=== PATIENT | female | born 1950 | race Caucasian/White ===

== ENCOUNTER 2016-11-06 11:41 | Emergency (ER) | payer OTHER, MEDICARE ==
--- NOTE | ~2016-11-06 | OP ---
Record Of Operation [facility] [address] [place] [address] NAME: ZAKIA SANOTYO : 48 STATUS : [facility]#: [id number] AGE: 66 ADM/REG DATE : 11/06/16 MR#: [id number] REPORT SERV DATE: 11/06/16 DICTATED BY: DENAE HARDY DATE: 11/06/16 REPORT STATUS : Draft TRANSCRIBED BY: JANELLEL DATE: 11/06/16 DATE OF PROCEDURE: 11/06/2016 PREOPERATIVE DIAGNOSIS: Right hip prosthesis dislocation. POSTOPERATIVE DIAGNOSIS: Right hip prosthesis dislocation. PROCEDURE: Close reduction of right hip prosthesis. PROCEDURE IN DETAIL: After adequate sedation was given by myself using propofol, the patient was relaxed and using traction technique, the patient's right lower extremity was tractioned and rotated, and was able to get a good reduction of the right hip joint and prosthesis. Postoperative x-ray showed a well-approximated prosthesis. The patient tolerated the procedure well. COMPLICATIONS: None. ZACKARY Denae Hardy DO / [id number]
[~2016-11-06 11:41] MED LIST: ADDERALL15 MG PO; BENTYL10 PO; D 5000 PO; DIL4TAB PO; FAMVIR500 MG PO; HALCION0.25 MG PO; I-PRIN200 MG PO; KLONO1 PO; KLONO5 PO; KLOR-CON M2020 MEQ PO; LEXAPRO20 PO; MAGNESIUM IM; METHYLCOBALAMIN IM; MOVANTIK25 MG PO; NORCO1 TAB PO; PROMETRIUM PO; SOMA; SOMA250 MG PO; SYN1 PO; TAURINE IM; VITAMIN D1000 UNI1 PO; VITD; VIVELLE SY0.1 MG/24 TOP; VYVANSE50 MG PO
[2016-11-06 14:35] LABS: BASOPHILS 0.3 %; BASOPHILS ABSOLUTE 0.02 10/3/uL (0.0-0.16); EOSINOPHILS 2.3 %; EOSINOPHILS ABSOLUTE 0.17 10/3/uL (0.0-0.53); ER CBC TAT 0 Hrs 08 Mins; IMMATURE GRANULOCYTES 0.3 %; IMMATURE GRANULOCYTES ABSOLUTE 0.02 10/3/uL (0.0-0.11); LYMPHOCYTES 22.2 %; LYMPHOCYTES ABSOLUTE 1.63 10/3/uL (0.67-4.30); MEAN CORPUS HGB CONC 32.2 g/dL (32.0-36.0); MEAN CORPUSCULAR VOLUME 99.5 fL (80-100); MEAN PLATELET VOLUME 9.9 fL (9.2-13.0); MONOCYTES 7.5 %; MONOCYTES ABSOLUTE 0.55 10/3/uL (0.21-1.20); NEUTROPHILS 67.4 %; NEUTROPHILS ABSOLUTE 4.96 10/3/uL (2.02-8.40); RBC DISTRIBUTION WIDTH 13.8 % (12.0-16.0); WHITE BLOOD CELLS 7.4 10/3/uL (4.5-10.5)
[2016-11-06 14:36] LABS: HEMATOCRIT 40.4 % (36.0-48.0); MANUAL DIFF NO %; PLATELET COUNT 305 10/3/uL (150-400); RED CELL COUNT 4.06 10/6/uL (4.0-5.6)
[2016-11-06 14:44] LABS: PROTIME (NOT ORD) 13.4 SEC (12.0-14.5)
[2016-11-06 14:52] LABS: A/G RATIO 0.9 (0.7-1.9); ALBUMIN 3.2 G/DL (3.5-5.0); ALKALINE PHOSPHATASE 104 U/L (45-117); BUN (BLOOD UREA NITROGEN) 25 MG/DL (6-23); CALCIUM, SERUM 8.3 MG/DL (8.5-10.4); CHLORIDE, SERUM 106 MMOL/L (96-112); CO2 (CARBON DIOXIDE) 31 MMOL/L (24-34); CREATININE 0.62 MG/DL (0.55-1.02); GFR AFRICAN AMERICAN 108 ML/MIN (>=60); GFR NON AFRICAN AMERICAN 93 ML/MIN (>=60); GLOBULIN 3.5 G/DL (2.5-4.1); GLUCOSE, SERUM 87 MG/DL (60-99); POTASSIUM, SERUM 4.4 MMOL/L (3.5-5.3); SGOT(AST) 17 U/L (5-40); SGPT(ALT) 17 U/L (5-65); SODIUM, SERUM 143 MMOL/L (135-148); TOTAL BILIRUBIN 0.6 MG/DL (0-1.2); TOTAL PROTEIN 6.7 G/DL (6.0-8.5)
[2017-04-17] MEDS ORDERED: MAG-DELAY PO (14:02)
[2017-04-17] MEDS ORDERED: MAGNESIUM CITRATE PO (14:03)
[2017-04-17] MEDS ORDERED: [UNRECOGNIZED DRUG - CODE] PO (14:12)
[2017-04-17] MEDS ORDERED: SOMA PO (15:24)
[2017-04-17] MEDS ORDERED: FLONASE NAS (16:20)
[2017-04-20] MEDS ORDERED: DIL2TAB PO (15:22)
[2017-04-20] MEDS ORDERED: C5 PO (15:23)
== END 2016-11-06 17:58 | disposition home or self-care (01) ==
LOC: ER 11:41
PROVIDERS: Nurse Practitioner Family
PROC: 0SS9XZZ Reposition Right Hip Joint, External Approach (ICD-10-PCS; principal; 2016-11-06)
DX: T84.020A Dislocation of internal right hip prosthesis, initial encounter (principal); K21.9 Gastro-esophageal reflux disease without esophagitis; F17.200 Nicotine dependence, unspecified, uncomplicated; Z79.899 Other long term (current) drug therapy; W19.XXXA Unspecified fall, initial encounter
CPT/HCPCS: 71010; 73501-RT; 73502-RT; 80053; 85025; 85610; 93005; 96374; 96375; 96376; 99285; J2405

== ENCOUNTER 2016-11-08 04:29 | Inpatient (IN) | payer MEDICARE, OTHER ==
--- NOTE | ~2016-11-08 | OP ---
Record Of Operation [facility] [address] [place]. 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 PROCEDURE PERFORMED: Right total hip arthroplasty revision to constrained components. SURGEON: Yris Fuchs M.D. FRONT OFFICE DIRECTOR: Heena Carrero. ANESTHESIA: General with local infusion. HISTORY INDICATIONS: Ms. Santoyo is a 66-year-old woman, who came to a right total hip arthroplasty by another surgeon in 2008. Postoperatively, she had a challenged recovery and following this along, she recently had been to the office with significantly elevated cobalt and chrome levels from owanv-br-sckbo implant. We elected to proceed with conversion to ceramic on polyethylene. This was performed on 08/23/2016. Postoperatively, she actually did rather well and unfortunately, Monday where Easter three days ago, was standing for a picture in a grassy area, she had her hip dislocate while just standing. She subsequently came to the emergency department, was reduced, was at home and last night while lying in bed, had it dislocated again for which she came to the emergency department and was admitted and presents now for revision. PROCEDURE IN DETAIL: The patient was clearly identified and after obtaining informed consent, she was brought to the operating room at [facility], where she was carefully induced under general anesthesia, had her hip reduced, placed carefully in the left lateral decubitus position. Her previously utilized incisions made. After appropriate time-out, procedure was performed. She was prepped and draped in usual manner to gain access to the joint. Skin was divided, fascial planes were elevated, and the fascial component laterally was divided. There was some bursal-type tissues present, which were encountered with some blood in them from her dislocations and subsequently, this leads to the joint. There was no evidence of infection, although cultures were sent and careful exposure reveals that the superoposterior aspect of the acetabulum and iliac wing has a nice that was formed from her dislocations. This concluded, the hip was carefully dislocated again. The femoral head ball was removed and the acetabulum was exposed. The polyethylene was removed. Component position alignment look relatively good. There was perhaps a slight amount of indentation along the superoposterior aspect of the hooded liner, but it was actually quite subtle, trying to understand the patient's propensity to dislocate at this point, where as we had before starting the incision, had had an excellent range of motion without propensity to dislocate. Certainly with full extension, internal and external rotations uneventful, flexion and internal rotation uneventful, and internal rotation of the Record Of Operation [place] [id number] [facility] [place]. [address] NAME: ZAKIA SANTOYO FABIEN : 48 STATUS : ADM IN [facility]#: [id number] AGE: 66 ADM/REG DATE : 11/08/16 MR#: [id number] REPORT SERV DATE: 11/09/16 DICTATED BY: YRIS FUCHS DATE: 11/08/16 REPORT STATUS : Draft TRANSCRIBED BY: HAZEL DATE: 11/08/16 femur itself also was without ability to easily dislocate, but given her history, it seemed reasonable to proceed with a constrained construct. Subsequently, at this point, having approached the area components, which looked good. There was no evidence of infection. A constrained liner and head ball were placed. I cannot make the hip any longer, and given the current constructs, I did not feel appropriate at this point to revise fully the copper stem, which were acceptable and had been quite stable revision. This all concluded, the area was copiously irrigated, carefully closed in layers, closing the superoposterior aspect of the torn tissues as well and this concluded, the area was cleansed and dressed, and the patient was then allowed to awaken and was transferred to the recovery room in stable condition having tolerated the procedure well. Of note, great care was taken to avoid any impingement within the tissues despite the constrained liner and maintain leg length. Subsequently, the patient is allowed to awaken. ESTIMATED BLOOD LOSS: 150. FLUIDS: 1500. TOURNIQUET TIME: None. PATHOLOGY: Sent specimen. MICROBIOLOGY: Positive. COMPLICATIONS: None. SPONGE AND NEEDLE COUNTS: Reportedly correct. ANTIBIOTICS: Administered appropriately preoperatively and ordered to be discontinued within 23 hours. IMPLANTS: New components being placed. Acetabulum constrained liner size 50/28 femoral head +8.5/28 metal as these components are not made in ceramic with a trunnion. JN/MODL Yris Fuchs M.D. / [id number] CC: Billy Craig MD
--- NOTE | ~2016-11-08 | DS ---
Discharge Summary [place] [address] [place]. [address] NAME: ZAKIA SANTOYO : 48 STATUS : DIS IN PAT#: [id number] AGE: 66 ADM/REG DATE : 11/08/16 MR#: [id number] REPORT SERV DATE: 11/21/16 DICTATED BY: YRIS FUCHS DATE: 11/18/16 REPORT STATUS : Draft TRANSCRIBED BY: HAZEL DATE: 11/18/16 Data Collection from hospitalization DISCHARGE DIAGNOSES: 1. 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 2. Hypothyroidism. 3. Chronic fatigue. CONSULTATIONS: None. PROCEDURES PERFORMED: Right total hip arthroplasty revision to constrained components on 11/08/2016. PATHOLOGY: Surgical hardware and soft tissue, arthroplasty - surgical hardware (see gross description). Dense fibrous connective tissue with dystrophic calcification. No infection or neoplasm. MEDICATIONS: Vitamin D 5000 units daily at 5:00 p.m., Colace 100 mg twice a day, Lexapro 20 mg at 8:00 a.m., Minivelle one patch topically every seven days, Famvir 1500 mg four times a day, Pepcid 20 mg twice a day, ferrous sulfate 300 mg with breakfast and supper, levothyroxine 100 mcg at 7:00 a.m., Theragran tablets one tablet with breakfast, K-Dur 20 mEq every 48 hours, Prometrium 100 mg daily at 9:00 p.m., Vyvanse 40 mg daily as instructed, Coumadin as instructed, Halcion 0.25 mg at bedtime, Klonopin 1 mg at 9:00 p.m., Vyvanse 40 mg every morning, [place] 10/325 every four to six hours as instructed, lysine one dose at 8:00 a.m. and 5:00 p.m., Nexium 20 mg daily, Minocin 100 mg at 8:00 a.m. and 5:00 p.m., Movantik 25 mg daily as needed, methylcobalamin one dose IM on Sundays and Wednesdays as instructed, magnesium one dose IM on Sundays and Wednesdays as instructed, Centrum tablets half tablet at 9:00 a.m. and 5:00 p.m., omega-3 one dose at 10:00 a.m. and 5:00 p.m., probiotic one capsule at 9:00 p.m., CoQ10 one dose at bedtime, and Dilaudid 2 mg every four to six hours as needed for pain. CONDITION AT DISCHARGE: Stable. DISPOSITION: The patient was discharged to [facility] on a regular diet with activities as instructed. She would follow up with me two weeks following discharge. HOSPITAL COURSE: This is a 66-year-old female who had undergone a right total hip arthroplasty by another surgeon in 2008. Postoperatively, she had a challenged recovery, and following this along, she recently had been to the office with significantly elevated [place] and chrome from lvutn-wl-qugny implant. It was felt that we would need to proceed with conversion to ceramic on polyethylene. This had been performed on 08/23/2016. Postoperatively, she actually did rather well, but unfortunately, on Monday, she was standing for a picture in a grassy area when she had her hip dislocate while just standing. She subsequently came to the emergency department and was reduced. She was at home, and on the night prior to this admission while lying in bed, she had it dislocate again. She again presented to the emergency department. Treatment options were discussed and it was elected Discharge Summary [address] [address] NAME: ZAKIA SANTOYO : 48 STATUS : DIS IN PAT#: [id number] AGE: 66 ADM/REG DATE : 11/08/16 MR#: [id number] REPORT SERV DATE: 11/21/16 DICTATED BY: YRIS FUCHS DATE: 11/18/16 REPORT STATUS : Draft TRANSCRIBED BY: HAZEL DATE: 11/18/16 to proceed with surgical intervention. She was admitted to the hospital for further evaluation and treatment. Upon admission, she was taken to the operating room where she underwent the above-mentioned procedure. She tolerated this well, and there were no complications. On postop day #1, she was feeling better. She was afebrile. INR level was 1.1. She was evaluated by Occupational and Physical Therapy. Over the next couple of days, discharge planning was performed. She continued to progress. On 11/11/2016, she was doing well and wanted to go to nursing home facility. SOFIA hose were in place. Discharge instructions were given. Due to her improved and stable condition, she was discharged to [facility] with the above-stated instructions. Information collected by: Tresa Monet I submit the above information as my discharge summary. JEANNE/HAZEL Yris Fuchs M.D. / [id number] CC: Billy Craig MD [facility]
[2016-11-08 05:26] LABS: BASOPHILS 0.3 %; BASOPHILS ABSOLUTE 0.02 10/3/uL (0.0-0.16); EOSINOPHILS 2.2 %; EOSINOPHILS ABSOLUTE 0.16 10/3/uL (0.0-0.53); HEMATOCRIT 39.2 % (36.0-48.0); HEMOGLOBIN 12.9 g/dL (12.0-16.0); IMMATURE GRANULOCYTES 0.3 %; IMMATURE GRANULOCYTES ABSOLUTE 0.02 10/3/uL (0.0-0.11); LYMPHOCYTES 24.4 %; LYMPHOCYTES ABSOLUTE 1.75 10/3/uL (0.67-4.30); MEAN CORPUS HGB CONC 32.9 g/dL (32.0-36.0); MEAN CORPUSCULAR HEMOGLOB 32.6 pg (26.0-34.0); MEAN PLATELET VOLUME 9.8 fL (9.2-13.0); NEUTROPHILS 65.8 %; NEUTROPHILS ABSOLUTE 4.73 10/3/uL (2.02-8.40); PLATELET COUNT 274 10/3/uL (150-400); RBC DISTRIBUTION WIDTH 13.7 % (12.0-16.0); RED CELL COUNT 3.96 10/6/uL (4.0-5.6); WHITE BLOOD CELLS 7.2 10/3/uL (4.5-10.5)
[2016-11-08 05:27] LABS: MANUAL DIFF NO %
[2016-11-08 05:32] LABS: PARTIAL THROMBO TIME 29.7 SEC (22.5-37.2); PROTIME (NOT ORD) 13.3 SEC (12.0-14.5)
[2016-11-08 05:46] LABS: CHEST PAIN PROFILE TAT 0 Hrs 25 Mins; CHLORIDE, SERUM 105 MMOL/L (96-112); CO2 (CARBON DIOXIDE) 30 MMOL/L (24-34); CREATININE 0.66 MG/DL (0.55-1.02); GFR AFRICAN AMERICAN 106 ML/MIN (>=60); GFR NON AFRICAN AMERICAN 91 ML/MIN (>=60); GLUCOSE, SERUM 93 MG/DL (60-99); POTASSIUM, SERUM 3.9 MMOL/L (3.5-5.3); SODIUM, SERUM 143 MMOL/L (135-148); TROPONIN I <0.02 NG/ML (<0.05)
[2016-11-08 05:52] LABS: BUN (BLOOD UREA NITROGEN) 16 MG/DL (6-23)
[2016-11-08] MEDS ORDERED: VYVANSE50 MG PO (13:14)
[2016-11-08] MEDS ORDERED: LEXAPRO20 PO (13:15)
[2016-11-08] MEDS ORDERED: NORCO1 TAB PO (13:15)
[2016-11-08] MEDS ORDERED: LYSINE PO (13:16)
[2016-11-08] MEDS ORDERED: D 5000 PO (13:17)
[2016-11-08] MEDS ORDERED: KLONO1 PO (13:17)
[2016-11-08] MEDS ORDERED: MINIVELLE1 EAC1 TOP (13:18)
[2016-11-08] MEDS ORDERED: NEXIUM20 M1 PO (13:18)
[2016-11-08] MEDS ORDERED: FAMCICLOVIR500 MG PO (13:18)
[2016-11-08] MEDS ORDERED: MINOCIN100 PO (13:19)
[2016-11-08] MEDS ORDERED: LEVOTHYROXIN100 MCG PO (13:19)
[2016-11-08] MEDS ORDERED: MOVANTIK25 MG PO (13:20)
[2016-11-08] MEDS ORDERED: KDUR20 PO (13:21)
[2016-11-08] MEDS ORDERED: HALCION0.25 MG PO ×2 (13:22→13:23)
[2016-11-08] MEDS ORDERED: PROMETRIUM PO (13:22)
[2016-11-08] MEDS ORDERED: METHYLCOBALAMIN IM (13:24)
[2016-11-08] MEDS ORDERED: MAGNESIUM IM (13:24)
[2016-11-08] MEDS ORDERED: TAURINE IM (13:25)
[2016-11-08] MEDS ORDERED: CENTRUM PO (13:25)
[2016-11-08] MEDS ORDERED: PQQ PO (13:26)
[2016-11-08] MEDS ORDERED: BERBERINE PO (13:26)
[2016-11-08] MEDS ORDERED: DHEA PO (13:27)
[2016-11-08] MEDS ORDERED: OMEGA PO (13:27)
[2016-11-08] MEDS ORDERED: [UNRECOGNIZED DRUG - OTHER] PO (13:28)
[2016-11-08] MEDS ORDERED: BLACK COHASH PO (13:28)
[2016-11-08] MEDS ORDERED: IBU600 PO (13:30)
[2016-11-08] MEDS ORDERED: PROBIOTIC PO (13:30)
[2016-11-08] MEDS ORDERED: MAGNESIUM PO (13:30)
[2016-11-08] MEDS ORDERED: MYCOSTATAB PO (13:31)
[2016-11-08] MEDS ORDERED: [UNRECOGNIZED DRUG - REMARK] PO (13:31)
[2016-11-08] MEDS ORDERED: COQ 10 PO (13:31)
[2016-11-08] MEDS ORDERED: [UNRECOGNIZED DRUG - OTHER] PO (13:46)
[2016-11-09 04:34] LABS: HEMATOCRIT 36.6 % (36.0-48.0); HEMOGLOBIN 11.7 g/dL (12.0-16.0)
[2016-11-09 04:41] LABS: INTERNATIONAL NORMAL RATI 1.1 UNITS (-)
[2016-11-09 04:53] LABS: BUN (BLOOD UREA NITROGEN) 13 MG/DL (6-23); CALCIUM, SERUM 7.3 MG/DL (8.5-10.4); CHLORIDE, SERUM 104 MMOL/L (96-112); CO2 (CARBON DIOXIDE) 31 MMOL/L (24-34); GFR AFRICAN AMERICAN 88 ML/MIN (>=60); GFR NON AFRICAN AMERICAN 76 ML/MIN (>=60); GLUCOSE, SERUM 96 MG/DL (60-99); SODIUM, SERUM 141 MMOL/L (135-148)
[2016-11-10 04:31] LABS: HEMATOCRIT 34.5 % (36.0-48.0)
[2016-11-10 04:38] LABS: INTERNATIONAL NORMAL RATI 1.5 UNITS (-)
[2016-11-10 04:39] LABS: PROTIME (NOT ORD) 18.2 SEC (12.0-14.5)
[2016-11-11 04:40] LABS: HEMATOCRIT 33.4 % (36.0-48.0); HEMOGLOBIN 10.8 g/dL (12.0-16.0)
[2016-11-11 04:43] LABS: INTERNATIONAL NORMAL RATI 1.8 UNITS (-)
[2017-04-17] MEDS ORDERED: MAG-DELAY PO (14:02)
[2017-04-17] MEDS ORDERED: MAGNESIUM CITRATE PO (14:03)
[2017-04-17] MEDS ORDERED: [UNRECOGNIZED DRUG - CODE] PO (14:12)
[2017-04-17] MEDS ORDERED: SOMA PO (15:24)
[2017-04-17] MEDS ORDERED: FLONASE NAS (16:20)
[2017-04-20] MEDS ORDERED: DIL2TAB PO (15:22)
[2017-04-20] MEDS ORDERED: C5 PO (15:23)
== END 2016-11-11 16:55 | disposition home or self-care (01) | DRG 468 ==
LOC: ER 04:29 → 3SO 04:48
PROVIDERS: Emergency Medicine; Orthopaedic Surgery
PROC: 0SP909Z Removal of Liner from Right Hip Joint, Open Approach (ICD-10-PCS; 2016-11-08)
PROC: 0SU909Z Supplement Right Hip Joint with Liner, Open Approach (ICD-10-PCS; 2016-11-08)
PROC: 0SP90JZ Removal of Synthetic Substitute from Right Hip Joint, Open Approach (ICD-10-PCS; 2016-11-08)
PROC: 0SS9XZZ Reposition Right Hip Joint, External Approach (ICD-10-PCS; 2016-11-08)
PROC: 0SR902Z Replacement of Right Hip Joint with Metal on Polyethylene Synthetic Substitute, Open Approach (ICD-10-PCS; principal; 2016-11-08 14:15)
DX: T84.020A Dislocation of internal right hip prosthesis, initial encounter (principal); F32.9 Major depressive disorder, single episode, unspecified; E03.9 Hypothyroidism, unspecified; F41.9 Anxiety disorder, unspecified; K21.9 Gastro-esophageal reflux disease without esophagitis; F17.200 Nicotine dependence, unspecified, uncomplicated; Z79.899 Other long term (current) drug therapy; W19.XXXA Unspecified fall, initial encounter
CPT/HCPCS: 71010; 72170; 73501-RT; 73502-RT; 80048; 80053; 82495; 83018; 83735; 84484; 85014; 85018; 85025; 85610; 85730; 87015; 87070; 87075; 87102; 87116; 87205; 88300; 88304; 93005; 96374; 96375; 96376; 97110-GP; 97116-GP; 97161-GP; 97165-GO; 97530-GP; 97535-GO; 99285; A9270-GY; C1776; G8978-CK-GP; G8979-CI-GP; G8987-CJ-GO; G8988-CI-GO; J0690; J1170; J1885; J2250; J2274; J2405; J2710; J2795; J3010